=== PATIENT | female | born 1995 | race Caucasian/White ===

== ENCOUNTER 2018-06-27 17:44 | Inpatient (IN) | payer OTHER ==
--- NOTE | 2018-06-27 17:51 | PDOC ---
Rapid Medical Evaluation Time Seen by Provider: 06/27/18 17:48 Medical Evaluation: Allergies Allergy/AdvReac Type Severity Reaction Status Date / Time No Known Allergies Allergy Verified 06/27/18 17:46 06/27/18 17:49 I have performed a brief in-person evaluation of this patient. The patient presents with a chief complaint of: abnormal mri results. Patient sent to ed for further evaluation after mri shows hydrocephalus. Reports frequent headaches Pertinent physical exam findings are NAD EOMI moving all limbs freely, clear speech, symmetry of face I have ordered the following urine The patient will proceed to the Ed for further evaluation.
--- NOTE | 2018-06-27 18:18 | PDOC ---
History of Present Illness - General Chief Complaint: Headache Stated Complaint: SENT BY PCP/abnormal mri result Time Seen by Provider: 06/27/18 17:48 History Source: Patient Exam Limitations: No Limitations - History of Present Illness Initial Comments: Pt, with no significant PMH, was sent from Dr. Haro (neurology) office after an MRI was done today showing moderate communicating hydrocephalus. Pt has had worsening headaches over the past 5 months, not controlled with Tylenol. The pt was seen by her PCP 2 weeks ago, and her headaches improved after pt was given magnesium TID, Excedrin, and "an anti-depressant". She has also tried dietary changes which have helped the headache frequency. She states the used to occur 4 -5x/wk and lately they have been only 1-2x/wk. They are usually frontal and do not have an aura. Pt denies recent incontinence, ataxia, confusion/AMS, changes in vision or blurry/double vision, vomiting, seizures, sleep pattern changes or waking at night. The pt has still been able to work and drive. Family hx: diabetes and HTN in maternal and paternal grandmothers. No family history of migraines or hydrocephalus. Allergies: none LMP: May 24, 2018; have been normal. 06/27/18 19:13 Past History - Travel Traveled outside of the country in the last 30 days: No Close contact w/someone who was outside of country & ill: No - Past Medical History Allergies/Adverse Reactions: Allergies Allergy/AdvReac Type Severity Reaction Status Date / Time No Known Allergies Allergy Verified 06/27/18 17:46 Home Medications: Ambulatory Orders NK [No Known Home Medication] 06/27/18 COPD: No CHF: No HTN: No Hypercholesterolemia: No - Suicide/Smoking/Psychosocial Hx Smoking History: Never smoked Have you smoked in the past 12 months: No Information on smoking cessation initiated: No Substance Use Type: None Neuro Specific PMHX - Complaint Specific PMHX Migraine: Yes (5-6 months of frontal headache) TIA: No Review of Systems - Review of Systems Able to Perform ROS?: Yes Is the patient limited [place] Islander proficient: No Constitutional: Yes: Weight Stable. No: Chills, Diaphoresis, Fever, Loss of Appetite, Weakness HEENTM: No: Eye Pain, Blurred Vision, Recent change in vision, Double Vision, Nose Congestion, Throat Swelling, Difficulty Swallowing Respiratory: No: Cough, Orthopnea, Shortness of Breath Cardiac (ROS): No: Chest Pain, Edema, Irregular Heart Rate, Lightheadedness, Palpitations, Syncope ABD/GI: Yes: Nausea (sometimes accompanies headaches, no vomiting). No: Constipated, Diarrhea, Difficulty Swallowing, Poor Appetite, Poor Fluid Intake, Vomiting : No: Burning, Dysuria, Frequency, Hematuria, Urgency Musculoskeletal: No: Back Pain, Joint Pain, Muscle Weakness Integumentary: No: Bruising, Rash Neurological: Yes: Headache. No: Numbness, Paresthesia, Seizure, Tingling, Tremors, Weakness, Unsteady Gait, Ataxia, Dizziness Psychiatric: No: Sleep Pattern Change, Change in Appetite Endocrine: No: Increased Urine, Change in Weight Hematologic/Lymphatic: No: Anemia, Blood Clots All Other Systems: Reviewed and Negative *Physical Exam - Vital Signs Last Vital Signs Temp Pulse Resp BP Pulse Ox 98.1 F 86 18 133/90 100 06/27/18 17:48 06/27/18 17:48 06/27/18 17:48 06/27/18 17:48 06/27/18 17:48 - Physical Exam General Appearance: Yes: Nourished, Appropriately Dressed, Moderate Distress ( Pt tearful and anxious. Vitals stable. Pt became calm after talking with her.) HEENT: positive: EOMI, KOSTA, Normal ENT Inspection, Normal Voice, Symmetrical, Pharynx Normal, Hearing Grossly Normal. negative: Scleral Icterus (R), Scleral Icterus (L), Tonsillar Exudate, Tonsillar Erythema, Rhinorrhea Neck: positive: Trachea midline, Normal Thyroid, Supple. negative: Tender, Rigid, Lymphadenopathy (R), Lymphadenopathy (L) Respiratory/Chest: positive: Lungs Clear, Normal Breath Sounds. negative: Chest Tender, Respiratory Distress, Accessory Muscle Use Cardiovascular: positive: Regular Rhythm, Regular Rate, S1, S2. negative: Edema , JVD, Murmur Vascular Pulses: Carotid (R): 4+, Carotid (L): 4+ Gastrointestinal/Abdominal: positive: Normal Bowel Sounds, Flat, Soft. negative : Tender, Organomegaly, Pulsatile Mass, Distended, Guarding, Rebound Rectal Exam: positive: deferred Lymphatic: negative: Adenopathy, Tenderness Musculoskeletal: positive: Normal Inspection. negative: CVA Tenderness Extremity: positive: Normal Capillary Refill, Normal Inspection, Normal Range of Motion, Pelvis Stable. negative: Tender, Pedal Edema Integumentary: positive: Normal Color, Dry, Warm. negative: Jaundice, Diaphoresis, Rash Neurologic: positive: geospatial extractor analysis II-XII NML intact, Fully Oriented, Alert, Normal Mood/ Affect, Normal Response, Motor Strength 5/5. negative: EOM Palsy, Facial Droop , Numbness, Sensory Deficit, Finger to Nose, Confused ED Treatment Course - LABORATORY CBC & Chemistry Diagram: 06/27/18 18:55 06/27/18 18:55 Medical Decision Making - Medical Decision Making Pt seen at bedside, also seen by Dr. Ruiz. Pt sent from Dr. Haro ( neurology) office after an MRI was done today showing moderate communicating hydrocephalus. Pt has had worsening headaches over the past 5 months, not controlled Tylenol. Headaches improved over last 2 weeks after pt was given Mg TID, Excedrin, and "an anti-depressant". Pt neuro exam on presentation WNL, pt denies recent incontinence, ataxia, confusion/AMS, changes in vision, and vomiting. Spoke with Dr. Haro, who requested a consult from Dr. Smith (neurosurgery ) and inpatient admission to med/surg. Pt agreeable to admission. Ordered CBC, CMP, coags, serum . Pending lab results. Spoke with Dr. Ogden who accepted pt for admission. 06/27/18 18:51 Dr. Ruiz will speak to Dr. Smith regarding consult. 06/27/18 19:12 Labs generally WNL. Pt comfortable. Minor headache, but pt denies pain medication at this point. Awaiting admission. 06/27/18 20:17 Dr. Ogden present to see admitted pts. Pt states she has minor headache but denies any pain medication at this time. Pt still A/Ox4, no other complaints. Awaiting to be taken upstairs. 06/27/18 22:52 *DC/Admit/Observation/Transfer Diagnosis at time of Disposition: Hydrocephalus Headache Qualifiers: Headache type: unspecified Headache chronicity pattern: chronic headache Intractability: not intractable Qualified Code(s): R51 - Headache - Discharge Dispostion Condition at time of disposition: Stable Decision to Admit order: Yes - Referrals - Patient Instructions - Post Discharge Activity
--- NOTE | 2018-06-27 19:04 | PDOC ---
Attending Attestation - Resident Resident Name: AndreKathleen - ED Attending Attestation I have performed the following: I have examined & evaluated the patient, The case was reviewed & discussed with the resident, I agree w/resident's findings & plan, Exceptions are as noted - Medical Decision Making 06/27/18 18:59 I, Dr. Zeinab Ruiz, DO, attest that this document has been prepared under my direction and personally reviewed by me in its entirety. I further attest, that it accurately reflects all work, treatment, procedures and medical decision -making performed by me. 06/27/18 18:59 a/p: 23yo female with hx of okeefe sent from outpt radiology for eval of hydrocephalus on MRI -pt with hx of headaches x weeks -seen by Dr. Haro outpt neuro who started her on mag and antidepressants for okeefe -pt still with okeefe - though improved so underwent MRI imaging today -MRI shows hydrocephalus and was sent to the ED for further eval -neuro intact -resident discussed the case with Dr. Ogden for admission and with Dr. aHro who request med/surg, consult to Dr. Smith and consult to Dr. Haro -will send preop labs 06/27/18 19:04 discussed the plan with the patient discussed with Dr. Smith who is reviewing the MRI now <Zeinab Ruiz - Last Filed: 06/27/18 18:59> - HPI HPI: 06/27/18 19:05 The patient is a 23 year old female, with a significant past medical history of headaches, who presents to the emergency department with, 4 weeks of headaches. As per patient, she has been experiencing headaches and was seen by her neurologist, Dr. Haro who put her on an antidepressant, magnesium, and advised her to make dietary changes. She followed instructions and observed a decrease in frequency of her headaches from everyday to once a week and also decrease in severity. The patient was in outpatient MRI when she was advised by the radiologist to report to the ER for further evaluation. She denies recent fevers, chills, or dizziness. She denies recent nausea, vomit , diarrhea or constipation. She denies recent dysuria, frequency, urgency or hematuria. She denies recent chest pain or shortness of breath. Allergies: NKDA Past surgical history: None reported. Social history: Nonsmoker. Denies EtOH use and recreational drug use. - Physicial Exam PE: 06/27/18 19:06 +Constitutional: Tearful and anxious about upcoming surgery. Awake, alert, oriented. No acute distress. Head: Normocephalic. Atraumatic Eyes: PERRL. EOMI. Conjunctivae are not pale. ENT: Mucous membranes are moist and intact. Posterior pharynx without exudates or erythema. Uvula midline. Neck: Supple. Full ROM. No lymphadenopathy. Cardiovascular: Regular rate. Regular rhythm. S1, S2 regular. Distal pulses are 2+ and symmetric. Pulmonary/Chest: No evidence of respiratory distress. Clear to auscultation bilaterally No wheezing, rales or rhonchi. Abdominal: Soft and non-distended. There is no tenderness. No rebound, guarding or rigidity. No organomegaly. No palpable masses. Good bowel sounds. Back: No CVA tenderness. Musculoskeletal: No edema. No cyanosis. No clubbing. Full range of motion in all extremities. No calf tenderness. Radial/pedal pulses are intact and 2+ bilaterally Skin: Skin is warm and dry. No petechiae. No purpura. Neurological: Alert and oriented to person, place, and time. Cranial nerves II -XII are grossly intact. Normal speech. Strength is grossly symmetric. No sensory deficits. Psychiatric: Good eye contact. Normal interaction, affect and behavior. - Medical Decision Making 06/27/18 19:[address] Chetna Smith, case was discussed. He was made aware of the case and reviewed MRI. He will evaluate the patient tomorrow. <Shruti Quiroz - Last Filed: 06/27/18 19:30> Attestations - Attestations 06/27/18 19:06 Documentation prepared by Shruti Quiroz, acting as medical front desk specialist for Zeinab Ruiz DO. <Shruti Quiroz - Last Filed: 06/27/18 19:30>
[2018-06-27 19:21] LABS: BASO % 0.5 % (0-2.0); EOS % 6.1 % (0-4.5); HEMATOCRIT 35.4 % (32.4-45.2); HEMOGLOBIN 11.3 GM/dL (10.7-15.3); LYMPH % 18.1 % (8-40); MCH 25.3 pg (25.7-33.7); MEAN CELL VOLUME 79.1 fl (80-96); MEAN PLT VOLUME 8.2 fl (7.5-11.1); MONO % 8.6 % (3.8-10.2); NEUT % 66.7 % (42.8-82.8); PLATELET COUNT 290 K/MM3 (134-434); RBC 4.47 M/mm3 (3.60-5.2); RDW 16.9 % (11.6-15.6); WHITE BLOOD COUNT 7.4 K/mm3 (4.0-10.0)
[2018-06-27 19:37] LABS: INR 1.01 (0.83-1.09); PROTHROMBIN TIME (PATIENT) 11.9 SEC (9.7-13.0)
[2018-06-27 19:40] LABS: ACTIVATED PTT 30.9 SECONDS (25.2-36.5)
[2018-06-27 19:53] LABS: ALK PHOS 75 U/L (45-117); ANION GAP 4 MMOL/L (8-16); BILIRUBIN,TOTAL 0.2 mg/dL (0.2-1); BLOOD UREA NITROGEN 9 mg/dL (7-18); CALCIUM 8.5 mg/dL (8.5-10.1); CHLORIDE 111 mmol/L (98-107); CO2 25 mmol/L (21-32); CREATININE 0.7 mg/dL (0.55-1.3); GLUCOSE,RANDOM 77 mg/dL (74-106); MAGNESIUM 2.1 mg/dL (1.8-2.4); SGOT/AST 18 U/L (15-37); SGPT/ALT 17 U/L (13-61); SODIUM 140 mmol/L (136-145); TOT PROT 7.8 g/dl (6.4-8.2)
--- NOTE | 2018-06-27 20:22 | CON.NEURO ---
Consult Consult Specialty:: Estrellita Referred by:: ER - History of Present Illness History of Present Illness: 23-year-old right-handed female patient with essentially no medical history presented to the office for neurological evaluation and consultation about 10 days ago patient was seen in the office and diagnosed with questionable migraine versus tension type headache patient was started on Motrin and magnesium and was discharged to go to the hospital for elective MRI of the brain with no contrast. I was called this afternoon by the neuroradiologist that the patient has communicating hydrocephalus patient was instructed to go to the emergency room for admission I called neurosurgery consult. According to the patient the headache has been going on for few weeks patient denies any recent trauma to the head no recent travel no neck pain no fever. In the emergency room blood work was done patient was not anemic. - History Source History Provided By: Patient Limitations to Obtaining History: No Limitations - Smoking History Smoking history: Never smoked Have you smoked in the past 12 months: No Home Medications - Allergies Allergies/Adverse Reactions: Allergies Allergy/AdvReac Type Severity Reaction Status Date / Time No Known Allergies Allergy Verified 06/27/18 17:46 - Home Medications Home Medications: Ambulatory Orders NK [No Known Home Medication] 06/27/18 Family Disease History - Family Disease History Family History: Unable to Obtain Review of Systems - Review of Systems Constitutional: reports: No Symptoms Eyes: reports: No Symptoms Neurological: reports: Headache, Incoordination, Numbness, Parasthesia Physical Exam-Neuro Vital Signs: Vital Signs Temperature 98.1 F 06/27/18 17:48 Pulse Rate 86 06/27/18 17:48 Respiratory Rate 18 06/27/18 17:48 Blood Pressure 133/90 06/27/18 17:48 O2 Sat by Pulse Oximetry (%) 100 06/27/18 17:48 Constitutional: Yes: Well Nourished Neck: Yes: WNL Labs: CBC, BMP 06/27/18 18:55 06/27/18 18:55 INR, PTT INR 1.01 (0.83-1.09) 06/27/18 18:55 - Neuro Exam Level Of Consciousness: Yes: Oriented to Person, Oriented to Place, Oriented to Time Eyes: Yes: PERRLA Speech: WNL Dominant Hand: Right Cranial Nerves II-XII Intact: Yes Gag: Present DTR's: 1+ Left Bicep, 1+ Right Bicep, 1+ Left Tricep, 1+ Right Tricep Response to light touch: Normal Response to pain prick: Normal Response to temperature: Normal Response to vibration: Normal Motor Strength: 3/5: Left Arm, Right Arm, Left Leg, Right Leg Imaging - Results MRI: Image Reviewed Problem List - Problems (1) Hydrocephalus Assessment/Plan: communicating hydrocephalus Tension-type headache 1. Evaluate the images with the neurosurgeon for possibility of the shunt 2. Tylenol when necessary headache 3. Magnesium 250 once daily. Code(s): G91.9 - HYDROCEPHALUS, UNSPECIFIED
[2018-06-27] MEDS ORDERED: ACETAMINOPHEN/CAFFEINE/BUTALBITAL 1 TAB PO PRN (21:21)
--- NOTE | 2018-06-27 21:56 | HP ---
Admitting History and Physical - Primary Care Physician PCP: Franky Ogden - Admission History of Present Illness: 23 year old female, with a significant past medical history of headaches, who presents to the emergency department with, 4 weeks of headaches. As per patient , she has been experiencing headaches and was seen by her neurologist, Dr. Haro who put her on an antidepressant, magnesium, and advised her to make dietary changes. She followed instructions and observed a decrease in frequency of her headaches from everyday to once a week and also decrease in severity. The patient was in outpatient MRI when she was advised by the radiologist to report to the ER for further evaluation. She denies recent fevers, chills, or dizziness. She denies recent nausea, vomit , diarrhea or constipation. - Smoking History Smoking history: Never smoked Have you smoked in the past 12 months: No Home Medications - Allergies Allergies/Adverse Reactions: Allergies Allergy/AdvReac Type Severity Reaction Status Date / Time No Known Allergies Allergy Verified 06/27/18 17:46 - Home Medications Home Medications: Ambulatory Orders NK [No Known Home Medication] 06/27/18 Physical Examination Vital Signs: Vital Signs Temperature 98.1 F 06/27/18 17:48 Pulse Rate 86 06/27/18 17:48 Respiratory Rate 18 06/27/18 17:48 Blood Pressure 133/90 06/27/18 17:48 O2 Sat by Pulse Oximetry (%) 100 06/27/18 17:48 Constitutional: Yes: No Distress HENT: Yes: Atraumatic Neck: Yes: Supple Cardiovascular: Yes: Regular Rate and Rhythm Respiratory: Yes: CTA Bilaterally Gastrointestinal: Yes: Normal Bowel Sounds Extremities: Yes: WNL Edema: No Peripheral Pulses WNL: Yes Neurological: Yes: Alert, Oriented Labs: CBC, BMP 06/27/18 18:55 06/27/18 18:55 Problem List - Problems (1) Headache Assessment/Plan: on meds better... Code(s): R51 - HEADACHE Qualifiers: Headache type: unspecified Headache chronicity pattern: chronic headache Intractability: not intractable Qualified Code(s): R51 - Headache (2) Hydrocephalus Assessment/Plan: neurosurgery eval Code(s): G91.9 - HYDROCEPHALUS, UNSPECIFIED Assessment/Plan Laboratory Tests 10/08/18 10/08/18 10/08/18 18:55 18:55 18:55 WBC 7.4 RBC 4.47 Hgb 11.3 Hct 35.4 MCV 79.1 L MCH 25.3 L MCHC 32.0 RDW 16.9 H Plt Count 290 MPV 8.2 Absolute Neuts (auto) 5.0 Neutrophils % 66.7 Lymphocytes % 18.1 Monocytes % 8.6 Eosinophils % 6.1 H Basophils % 0.5 Nucleated RBC % 0 PT with INR 11.90 INR 1.01 PTT (Actin FS) 30.9 Sodium 140 Potassium 4.0 Chloride 111 H Carbon Dioxide 25 Anion Gap 4 L BUN 9 Creatinine 0.7 Creat Clearance w eGFR > 60 Random Glucose 77 Calcium 8.5 Magnesium 2.1 Total Bilirubin 0.2 AST 18 ALT 17 Alkaline Phosphatase 75 Total Protein 7.8 Albumin 4.0 Serum , Qual Blood Type Antibody Screen 06/27/18 06/27/18 18:55 19:30 WBC RBC Hgb Hct MCV MCH MCHC RDW Plt Count MPV Absolute Neuts (auto) Neutrophils % Lymphocytes % Monocytes % Eosinophils % Basophils % Nucleated RBC % PT with INR INR PTT (Actin FS) Sodium Potassium Chloride Carbon Dioxide Anion Gap BUN Creatinine Creat Clearance w eGFR Random Glucose Calcium Magnesium Total Bilirubin AST ALT Alkaline Phosphatase Total Protein Albumin Serum , Qual Negative Blood Type O POSITIVE Antibody Screen Negative Active Medications Generic Name Dose Route Start Last Admin Trade Name Freq PRN Reason Stop Dose Admin Acetaminophen/Butalbital/Caffeine 1 tablet 06/27/18 21:21 Fioricet - PO 06/30/18 21:21 Q6H PRN FEVER
[2018-06-27 23:54] VITALS: BMI 30.7
[2018-06-28 14:59] VITALS: TEMP 98.1
--- NOTE | 2018-06-28 16:09 | PN ---
Progress Note, Physician - Current Medication List Current Medications: Active Medications Acetaminophen/Butalbital/Caffeine (Fioricet -) 1 tablet PO Q6H PRN PRN Reason: FEVER Stop: 06/30/18 21:21 - Objective Vital Signs: Vital Signs Temperature 98.1 F 06/28/18 14:57 Pulse Rate 75 06/28/18 14:57 Respiratory Rate 18 06/28/18 14:57 Blood Pressure 113/60 06/28/18 14:57 O2 Sat by Pulse Oximetry (%) 99 06/28/18 09:00 Constitutional: Yes: No Distress HENT: Yes: Atraumatic Neck: Yes: Supple Cardiovascular: Yes: Regular Rate and Rhythm Respiratory: Yes: CTA Bilaterally Gastrointestinal: Yes: Normal Bowel Sounds Extremities: Yes: WNL Neurological: Yes: Alert, Oriented Labs: CBC, BMP 06/27/18 18:55 06/27/18 18:55 INR, PTT INR 1.01 (0.83-1.09) 06/27/18 18:55 Problem List - Problems (1) Headache Assessment/Plan: on meds better waiiting neurosurgery eval Code(s): R51 - HEADACHE Qualifiers: Headache type: unspecified Headache chronicity pattern: chronic headache Intractability: not intractable Qualified Code(s): R51 - Headache (2) Hydrocephalus Code(s): G91.9 - HYDROCEPHALUS, UNSPECIFIED
--- NOTE | 2018-06-28 16:55 | DS ---
Physical Examination Vital Signs: Vital Signs Temperature 98.1 F 06/28/18 14:57 Pulse Rate 75 06/28/18 14:57 Respiratory Rate 18 06/28/18 14:57 Blood Pressure 113/60 06/28/18 14:57 O2 Sat by Pulse Oximetry (%) 99 06/28/18 09:00 Constitutional: Yes: No Distress HENT: Yes: Atraumatic Neck: Yes: Supple Cardiovascular: Yes: Regular Rate and Rhythm Respiratory: Yes: CTA Bilaterally Gastrointestinal: Yes: Normal Bowel Sounds Extremities: Yes: WNL Edema: No Peripheral Pulses WNL: Yes Neurological: Yes: Alert, Oriented Labs: CBC, BMP 06/27/18 18:55 06/27/18 18:55 Discharge Summary Reason For Visit: HYDROCEPHALUS Current Active Problems Headache (Acute) Hydrocephalus (Acute) Condition: Stable - Instructions Referrals: Dar Haro MD [Staff Physician] - Franky Ogden MD [Staff Physician] - Disposition: HOME - Home Medications Comprehensive Discharge Medication List: Ambulatory Orders NK [No Known Home Medication] 06/27/18 dc home cleared by neurosurgery
[2018-06-28 17:05] VITALS: BP 93/60; PULSE 80
--- NOTE | 2018-06-28 17:17 | CONSULT ---
Consult - text type - Consultation Consultation Note: Sabrina Rosado is a 23 year old Latin female with a several week history of headaches which have partially responded to Magnesium, antidepressants and dietary changes. Since she did not have complete resolution, she was referred for MRI Brain which was performed yesterday as an outpatient. This exam was remarkable for communicating Hydrocephalus. The patient was directed to the ER for evaluation and was found to be completely Neurologically intact with no visual changes. Her headache pattern is not associated with exertion, position or time of day and there has been no visual symptom development or association with diminished mental status. At this point, there is no acute Neurosurgical intervention which is indicated, but I stressed to the patient that if she were to develop visual symptoms, progression of headaches or somnolence, that she should contact our office. All questions answered. Patient is clear for outpatient followup.
== END 2018-06-28 18:56 | disposition home or self-care (01) | DRG 42 ==
LOC: JER 17:44 → JERBED 18:38 → J8W 23:43
PROVIDERS: ADMIT Internal Medicine; ATTEND Internal Medicine
DX: G91.0 Communicating hydrocephalus (principal); G44.209 Tension-type headache, unspecified, not intractable; R20.2 Paresthesia of skin; R27.8 Other lack of coordination
CPT/HCPCS: 36415; 70551-TC; 80053; 82607; 83036; 83735; 84703; 85025; 85610; 85730; 86593; 86850; 86900; 86901; 99284-25